=== PATIENT | female | born 1975 | race Caucasian/White ===

== ENCOUNTER 2016-10-07 10:51 | Emergency (ER) | payer OTHER ==
[~2016-10-07] VITALS: Ht 175.3 cm; Wt 138.0 kg
[~2016-10-07 10:51] MED LIST: CYCL5TAB PO; LEVO150T7 PO; NAPR-576 PO; PHEN37.5 PO
[2016-10-07 10:55] VITALS: BP 138/96; PULSE 95; RESP 18; TEMP 97.6; O2SAT 94
[2016-10-07] MEDS ORDERED: [UNRECOGNIZED DRUG - OTHER] TOP (11:11)
[2016-10-07] MEDS ORDERED: METF1000 PO (11:11)
[2016-10-07 11:29] LABS: BLOOD, URINE NEG (NEG); GLUCOSE,URINE NEG (NEG); KETONE, URINE NEG (NEG); NITRITE,URINE NEG (NEG); PH, URINE 5.5 (5.0-8.5)
[2016-10-07] MEDS ORDERED: KETOROLAC TROMETHAMINE 60 MG/2 ML (IM) VIAL IM ONE (11:30)
[2016-10-07 11:36] LABS: COMMENT (UR) CULT NOT INDICATED; CULTURE IF INDICATED CULT NOT INDICATED; METHOD OF COLLECTION CLEAN CATCH; SQUAMOUS EPITHELIAL CELL URINE 0-5 /hpf (0-5); URINE COLOR YELLOW (YELLW/STRAW); WBC, URINE 0-2 /hpf (0-5)
--- NOTE | 2016-10-07 11:37 | PD ---
HPI Chief Complaint: Flank/Kidney Pain Time Seen by Provider: 11:02 Travel History International Travel<30 days: No Contact w/Intl Traveler<30days: No Traveled to known affect area: No History of Present Illness HPI The patient was seen and examined in the presence of the nurse. Patient woke up from a nap 2 days ago and had pain in her right low back. No injury or trauma. No neurologic complaint no urinary retention or incontinence. Denies fever. Severity is moderate. Pain is worse with twisting the torso. No urinary complaints PFSH Past Medical History Depression: Yes Diabetes: Yes Patient Takes Glucophage: Yes Diminished Hearing: No Reproductive: Yes (history of cysts on ovaries) Thyroid Disease: Yes Tetanus Vaccination: Unknown Influenza Vaccination: No ?: Not : 1 Para: 1 Miscarriage: 0 : 0 Ovarian Cysts: Yes (PARTIAL REMOVAL OF OVARY DUE TO CYST) Past Surgical History Appendectomy: Yes (2004) Section: Yes (1996) Cholecystectomy: Yes (1998) Gynecologic Surgery: Yes ("1989 & 1990,multiple reconstructive surgery on cervix") Hysterectomy: Yes Other Surgery: Yes (2006,"left fallopian tube removed" "2004,09/21 rightovary removed") Social History Alcohol Use: Yes (SOCIAL) Tobacco Use: Yes (09/21 PPD) Substance Use: No Allergies-Medications (Allergen,Severity, Reaction): Coded Allergies: Lortab (Verified Adverse Reaction, Severe, "severe vomiting", 10/07/16) Morphine (Verified Adverse Reaction, Severe, "told not to take because of reaction to lortab", 10/07/16) Reported Meds & Prescriptions Reported Meds & Active Scripts Active Reported [Evermist] 1 [place] TOP DAILY Metformin (Metformin HCl) 1,000 Mg Tab 1,000 Mg PO BIDPC With meals Review of Systems General / Constitutional: No: Fever HENT: No: Headaches Cardiovascular: No: Chest Pain or Discomfort Physical Exam Narrative GASTROINTESTINAL: Abdomen soft, non-tender, nondistended. Positive bowel sounds. No hepato-splenomegaly, or palpable masses. No guarding. SKIN: Inspection shows no rash or ulcers. Palpation shows no induration or nodules. NEUROLOGICAL: Awake and alert. Pupils are equal round and reactive. Motor and sensory grossly within normal limits. Five out of 5 muscle strength in all muscle groups. Normal speech. Back: No midline tenderness. There is right lumbar muscular area tenderness Data Data Last Documented VS Vital Signs Date Time Temp Pulse Resp B/P Pulse Ox O2 Delivery O2 Flow Rate FiO2 10/07/16 10:55 97.6 95 18 138/96 94 Orders Ed Urine Pregnancytest Poc (10/07/16 11:11) Urinalysis - C+S If Indicated (10/07/16 11:19) Ketorolac Inj (Toradol Inj) (10/07/16 11:30) Labs Laboratory Tests Test 10/07/16 11:20 Urine Collection Type CLEAN CATCH Urine Color YELLOW Urine Turbidity CLEAR Urine pH 5.5 Urine Specific [place] 1.015 Urine Protein NEG mg/dL Urine Glucose (UA) NEG mg/dL Urine Ketones NEG mg/dL Urine Occult Blood NEG Urine Nitrite NEG Urine Bilirubin NEG Urine Leukocyte Esterase NEG Urine WBC 0-2 /hpf Urine Squamous Epithelial 0-5 /hpf Cells Microscopic Urinalysis Comment CULT NOT INDICATED Urine Collection Time 11:20 [facility] Medical Decision Making Medical Screen Exam Complete: Yes Emergency Medical Condition: Yes Medical Record Reviewed: Yes Differential Diagnosis Lumbar strain, disc herniation, sciatica, pyelonephritis Narrative Course I have reviewed the patient's electronic medical record. Urine is negative Urinalysis is normal I gave her Toradol injection She is neurologically intact. No red flags to suggest emergent imaging is indicated I gave her prescription for tramadol Diagnosis Primary Impression: Low back pain Qualified Code: M54.5 - Acute right-sided low back pain without sciatica Additional Instructions: The patient was advised to follow up with their physician and return if they worsen. The patient was warned about potential sedation for the medications they will receive on prescription. Med/Other Pt SpecificInfo: Prescription(s) given Scripts Tramadol 50 Mg Tab50 Mg PO Q6H PRN (PAIN) #20 TAB Ref 0 Prov:Octavio Abdi MD 10/07/16 Disposition: 01 DISCHARGE HOME Condition: Stable Octavio Abdi MD Oct 07, 2016 11:37
[2016-10-07] MEDS ORDERED: TRAM50TA PO (12:01)
[2016-10-07 12:09] VITALS: BP 115/78
[2016-10-08] MEDS ORDERED: EVAM1.532 TOP (15:47)
== END 2016-10-07 12:10 | disposition home or self-care (01) ==
LOC: PHED 10:51
DX: M54.5 Low back pain (principal); E07.9 Disorder of thyroid, unspecified; E11.9 Type 2 diabetes mellitus without complications; Z79.84 Long term (current) use of oral hypoglycemic drugs; F17.210 Nicotine dependence, cigarettes, uncomplicated
CPT/HCPCS: 81001; 84703; 96372; 99283; J1885